=== PATIENT | male | born 1980 | race Hispanic/Latino ===

== ENCOUNTER → 2018-08-01 | Outpatient (CLI) | payer OTHER ==
--- NOTE | 2018-08-01 09:39 | REP ---
LEFT ANKLE, FOUR VIEWS: There is no evidence of an acute fracture, dislocation or intrinsic bone disease. IMPRESSION: No fracture or dislocation. Electronically Signed by Dalton Woo MD 08/06/2018 11:33 A
== END ==
LOC: M RAD 08:30
PROVIDERS: ATTEND Surgery
DX: M25.572 Pain in left ankle and joints of left foot (principal)